=== PATIENT | male | born 2000 | race Caucasian/White ===

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

== ENCOUNTER 2022-07-21 11:41 | Inpatient (IN) ==
--- NOTE | 2022-07-21 12:25 | Emergency Department Note ---
Impression & Plan Suicidal ideation, Mood disorder ED Provider Note NAME: WIN JOHANSEN AGE: 22 SEX: M : 2000 ARRIVES VIA: Walk-In INFORMANT: Patient ED PROVIDER(S): Rasheed Aaron DO CHIEF COMPLAINT: SI HPI: Patient is a 22-year-old male with past medical history of depression, and anxiety who presents to the ER for suicidal ideations. He notes he does not have a plan but admits that he has been thinking about walking into traffic since October. Since October these thoughts have been coming, and going depending on his depression. They have gotten significantly worse recently. He has also recently thought about hanging himself. He feels unsafe at home and consequently wants to come in. He does not want to be admitted but feels as though he needs to be admitted. Denies any headache or change in vision. No chest pain or shortness of breath. No nausea, vomiting, or diarrhea. No dysuria, urgency, or frequency. No other exacerbating or remitting factors. He does take Wellbutrin and Zoloft. He has not missed any doses of his Zoloft and has intermittently missed some doses of his Wellbutrin. PAST MEDICAL HISTORY:See Below PAST SURGICAL HISTORY:See Below FAMILY HISTORY:See Below SOCIAL HISTORY:See Below HOME MEDICATIONS:See Below ALLERGIES:See Below VITALS:See Below PHYSICAL EXAMINATION: GENERAL: Sitting up in bed, alert, well appearing, well nourished, no distress, non-toxic EYE EXAM: normal conjunctiva. OROPHARYNX: no exudate, no erythema, lips, buccal mucosa, and tongue normal and mucous membranes are moist NECK: supple, no nuchal rigidity, no adenopathy, non-tender LUNGS: Clear to auscultation. Normal chest wall mechanics HEART: no murmurs, S1 normal and S2 normal ABDOMEN: abdomen soft, non-tender, normo-active bowel sounds, no masses, no rebound or guarding. BACK: Back is symmetrical on inspection and there is no deformity, no midline tenderness, no CVA tenderness. SKIN: no rashes and no bruising UPPER EXTREMITIES: upper extremities are grossly normal. LOWER EXTREMITIES: No pitting edema. NEURO EXAM: Normal sensorium, cranial nerves II-XII grossly intact, normal speech, no gross weakness of arms, no gross weakness of legs. PSYCH: To suicidal thoughts and notes that his #1 way of killing himself would be walking on from traffic and #2 would be hanging himself. MEDICAL DECISION MAKING: Patient is a 22-year-old male who presents ER for suicidal ideations and has been thinking about hanging himself or walking out in the traffic. He notes his #1 plan will be to walk into traffic. He is feeling helpless. He has put some thought and killing himself. Labs show no significant leukocytosis or anemia. BMP, LFTs bilirubin was unremarkable. TSH at 6. UA was clean. Tox was positive for MDMA. COVID-negative. Alcohol negative. Patient was discussed with her psychiatric care managers. Referral made to 3 S. Patient was accepted on a 2 oh 1-3 S. ED observation The patient was placed in observation status at 1150. Evaluation for medical stability. During the time in observation, the patient was frequently reassessed and received blood work and evaluation by her psychiatric care managers. On Final reassessment the patient blood work was unremarkable and the patient will be excepted at this time to 3 S. A total observation time of 4 hours and 10 minutes patient was excepted around 3:50 PM Triage Nursing notes reviewed. Limited review of prior medical records performed Vital Signs: reviewed and remarkable for HTN Differential diagnosis: Mood disorder, infection, hypoglycemia, electrolyte abnormalities, cardiac sources, intracerebral event, toxicologic, trauma, neurologic, as well as other pathologies. ER treatment provided: See below Diagnostics interpreted by me include EKG and cardiac monitoring as listed below: -Laboratory studies:Interpreted by me as stated above in MDM and shown below. Imaging studies: Xrays: As interpreted by me:none CTs show: none Consultation(s): As described in MDM Procedures:none Critical Care: None Past Med/Surg History Social History Smoking Status: Never smoker Feels Safe at Home: Yes Gender Identity: Male Allergies Allergies Allergy/AdvReac Type Severity Reaction Status Date / Time Penicillins Allergy Unknown . Unverified 11/03/14 00:23 Home Meds Home Medications Medication Instructions Recorded Confirmed Albuterol (Ventolin) See Rx Instructions .Route 11/10/08 07/21/22 .COMPLEX PRN SOB/Wheezing ##0 bupropion HCl 150 mg 24 hr tablet, 150 mg PO DAILY 07/21/22 07/21/22 extended release (Wellbutrin XL) sertraline 100 mg tablet (Zoloft) 150 mg HS 07/21/22 07/21/22 Results & Data (ED) Vital Signs Vital Signs - 24 hr 07/21/22 11:45 07/21/22 15:15 Temperature 36.7 C 36.7 C Temperature Source Temporal Artery Scan Oral Pulse Rate 94 H Pulse Rate [Radial] 83 Pulse Rhythm [Radial] Regular Pulse Strength [Radial] Normal Respiratory Rate 18 17 Respiratory Effort / Characteristics Non-Labored Non-Labored Spontaneous Respiratory Depth Normal Normal Respiratory Pattern Regular Blood Pressure 152/118 H Blood Pressure [Left Arm] 162/83 H Blood Pressure Mean 129 Blood Pressure Mean [Left Arm] 109 Blood Pressure Position Sitting Blood Pressure Position [Left Arm] Sitting Pulse Oximetry 97 99 Oxygen Delivery Method Room Air Room Air Sepsis Recent Fever Within 48 Hours No Sepsis New/Unexplained Change in Mental Status No Sepsis Action Taken by Nursing No Action Required Laboratory Data 07/21/22 12:06 07/21/22 12:06 Lab Results 07/21/22 07/21/22 07/21/22 Range/Units 12:06 12:06 12:06 WBC 9.01 (4.8-10.8) K/ul RBC 5.25 (4.70-6.10) M/uL Hgb 16.5 (14.0-18.0) g/dl Hct 44.1 (42.0-52.0) % MCV 84.0 (80.0-100.0) fL MCH 31.4 (25.0-34.0) pg MCHC 37.4 H (32.0-36.0) g/dL RDW Std Deviation 34.5 L (36.4-46.3) fL RDW Coeff of Jose Francisco 11.4 L (11.5-14.5) % Plt Count 208 (130-400) K/uL MPV 9.3 L (9.4-12.4) fL Immature Gran % (Auto) 0.3 % Neut % (Auto) 72.5 % Lymph % (Auto) 19.4 % [place] % (Auto) 6.4 % Eos % (Auto) 0.6 % Baso % (Auto) 0.8 % Neut # (Auto) 6.53 H (1.40-6.50) K/uL Lymph # (Auto) 1.75 (1.2-3.4) K/uL [place] # (Auto) 0.58 (0.11-0.59) K/uL Eos # (Auto) 0.05 (0-0.50) K/uL Baso # (Auto) 0.07 (0-0.2) K/uL Immature Gran # (Auto) 0.03 (0.01-0.20) K/uL Sodium 139 (136-145) mmol/L Potassium 3.7 (3.5-5.1) mmol/L Chloride 105 (98-107) mmol/L Carbon Dioxide 24 (21-32) mmol/L Anion Gap 10 (3-11) BUN 16 (6-23) mg/dl Creatinine 1.00 (0.6-1.4) mg/dl Est Cr Clr Drug Dosing 128.7 ml/min Est GFR ( Amer) 121.6 ml/min Est GFR (Non-Af Amer) 104.9 ml/min BUN/Creatinine Ratio 16.0 (10-20) Glucose 90 (70-99(Fasting)) mg/dl Calcium 10.0 (8.6-10.3) mg/dl Total Bilirubin 0.6 (0.2-1.0) mg/dl AST 18 (13-39) U/L ALT 13 (7-52) U/L Alkaline Phosphatase 70 (34-104) U/L Total Protein 8.3 (6.0-8.3) gm/dl Albumin 4.9 (3.4-5.0) gm/dl Globulin 3.4 (2.5-4.0) gm/dl Albumin/Globulin Ratio 1.4 (0.9-2) TSH 6.201 H (0.300-4.500) uIu/ml Free T4 0.72 (0.61-1.60) ng/dl Urine Color Urine Appearance (Clear) Urine pH (4.5-7.5) Ur Specific [place] (1.000-1.030) Urine Protein (Negative) Urine Glucose (UA) (Negative) Urine Ketones (Negative) Urine Blood (Negative) Urine Nitrite (Negative) Urine Bilirubin (Negative) Urine Urobilinogen (Negative) Ur Leukocyte Esterase (Negative) Salicylates (3.0-30) mg/dl Urine Opiates Screen (Neg) Ur Methadone, Qual (Neg) Acetaminophen (10-30) ug/ml Urine Barbiturates (Neg) Ur Phencyclidine (PCP) (Neg) U Amphetamin/Meth Scrn (Neg) MDMA (Ecstasy) Screen (Neg) U Benzodiazepines Scrn (Neg) Ur Cocaine Metabolite (Neg) U Marijuana (THC) Screen (Neg) Ethyl Alcohol mg/dL (<10.0) mg/dl SARS-CoV-2, RNA, NAAT (NEGATIVE) 07/21/22 07/21/22 07/21/22 Range/Units 12:06 12:06 12:06 WBC (4.8-10.8) K/ul RBC (4.70-6.10) M/uL Hgb (14.0-18.0) g/dl Hct (42.0-52.0) % MCV (80.0-100.0) fL MCH (25.0-34.0) pg MCHC (32.0-36.0) g/dL RDW Std Deviation (36.4-46.3) fL RDW Coeff of Jose Francisco (11.5-14.5) % Plt Count (130-400) K/uL MPV (9.4-12.4) fL Immature Gran % (Auto) % Neut % (Auto) % Lymph % (Auto) % [place] % (Auto) % Eos % (Auto) % Baso % (Auto) % Neut # (Auto) (1.40-6.50) K/uL Lymph # (Auto) (1.2-3.4) K/uL [place] # (Auto) (0.11-0.59) K/uL Eos # (Auto) (0-0.50) K/uL Baso # (Auto) (0-0.2) K/uL Immature Gran # (Auto) (0.01-0.20) K/uL Sodium (136-145) mmol/L Potassium (3.5-5.1) mmol/L Chloride (98-107) mmol/L Carbon Dioxide (21-32) mmol/L Anion Gap (3-11) BUN (6-23) mg/dl Creatinine (0.6-1.4) mg/dl Est Cr Clr Drug Dosing ml/min Est GFR ( Amer) ml/min Est GFR (Non-Af Amer) ml/min BUN/Creatinine Ratio (10-20) Glucose (70-99(Fasting)) mg/dl Calcium (8.6-10.3) mg/dl Total Bilirubin (0.2-1.0) mg/dl AST (13-39) U/L ALT (7-52) U/L Alkaline Phosphatase (34-104) U/L Total Protein (6.0-8.3) gm/dl Albumin (3.4-5.0) gm/dl Globulin (2.5-4.0) gm/dl Albumin/Globulin Ratio (0.9-2) TSH (0.300-4.500) uIu/ml Free T4 (0.61-1.60) ng/dl Urine Color Urine Appearance (Clear) Urine pH (4.5-7.5) Ur Specific [place] (1.000-1.030) Urine Protein (Negative) Urine Glucose (UA) (Negative) Urine Ketones (Negative) Urine Blood (Negative) Urine Nitrite (Negative) Urine Bilirubin (Negative) Urine Urobilinogen (Negative) Ur Leukocyte Esterase (Negative) Salicylates < 3.0 L (3.0-30) mg/dl Urine Opiates Screen (Neg) Ur Methadone, Qual (Neg) Acetaminophen < 3 L (10-30) ug/ml Urine Barbiturates (Neg) Ur Phencyclidine (PCP) (Neg) U Amphetamin/Meth Scrn (Neg) MDMA (Ecstasy) Screen (Neg) U Benzodiazepines Scrn (Neg) Ur Cocaine Metabolite (Neg) U Marijuana (THC) Screen (Neg) Ethyl Alcohol mg/dL < 10.0 (<10.0) mg/dl SARS-CoV-2, RNA, NAAT NEGATIVE (NEGATIVE) 07/21/22 07/21/22 Range/Units 14:02 14:02 WBC (4.8-10.8) K/ul RBC (4.70-6.10) M/uL Hgb (14.0-18.0) g/dl Hct (42.0-52.0) % MCV (80.0-100.0) fL MCH (25.0-34.0) pg MCHC (32.0-36.0) g/dL RDW Std Deviation (36.4-46.3) fL RDW Coeff of Jose Francisco (11.5-14.5) % Plt Count (130-400) K/uL MPV (9.4-12.4) fL Immature Gran % (Auto) % Neut % (Auto) % Lymph % (Auto) % [place] % (Auto) % Eos % (Auto) % Baso % (Auto) % Neut # (Auto) (1.40-6.50) K/uL Lymph # (Auto) (1.2-3.4) K/uL [place] # (Auto) (0.11-0.59) K/uL Eos # (Auto) (0-0.50) K/uL Baso # (Auto) (0-0.2) K/uL Immature Gran # (Auto) (0.01-0.20) K/uL Sodium (136-145) mmol/L Potassium (3.5-5.1) mmol/L Chloride (98-107) mmol/L Carbon Dioxide (21-32) mmol/L Anion Gap (3-11) BUN (6-23) mg/dl Creatinine (0.6-1.4) mg/dl Est Cr Clr Drug Dosing ml/min Est GFR ( Amer) ml/min Est GFR (Non-Af Amer) ml/min BUN/Creatinine Ratio (10-20) Glucose (70-99(Fasting)) mg/dl Calcium (8.6-10.3) mg/dl Total Bilirubin (0.2-1.0) mg/dl AST (13-39) U/L ALT (7-52) U/L Alkaline Phosphatase (34-104) U/L Total Protein (6.0-8.3) gm/dl Albumin (3.4-5.0) gm/dl Globulin (2.5-4.0) gm/dl Albumin/Globulin Ratio (0.9-2) TSH (0.300-4.500) uIu/ml Free T4 (0.61-1.60) ng/dl Urine Color Yellow Urine Appearance Clear (Clear) Urine pH 8.0 H (4.5-7.5) Ur Specific [place] 1.023 (1.000-1.030) Urine Protein Negative (Negative) Urine Glucose (UA) Negative (Negative) Urine Ketones Trace H (Negative) Urine Blood Negative (Negative) Urine Nitrite Negative (Negative) Urine Bilirubin Negative (Negative) Urine Urobilinogen Negative (Negative) Ur Leukocyte Esterase Negative (Negative) Salicylates (3.0-30) mg/dl Urine Opiates Screen Neg (Neg) Ur Methadone, Qual Neg (Neg) Acetaminophen (10-30) ug/ml Urine Barbiturates Neg (Neg) Ur Phencyclidine (PCP) Neg (Neg) U Amphetamin/Meth Scrn Neg (Neg) MDMA (Ecstasy) Screen Pos H (Neg) U Benzodiazepines Scrn Neg (Neg) Ur Cocaine Metabolite Neg (Neg) U Marijuana (THC) Screen Neg (Neg) Ethyl Alcohol mg/dL (<10.0) mg/dl SARS-CoV-2, RNA, NAAT (NEGATIVE) Discharge Plan Visit Data Chief Complaint: Mental Health Evaluation Stated Complaint: [facility] ED Provider: Rasheed Aaron Discharge Problem: Suicidal ideation, Mood disorder Forms Stand Alone Forms: My [facility], Suicide Prevention Resources Prescriptions Prescriptions: No Action Albuterol (Ventolin) inhaler See Rx Instructions .ROUTE .COMPLEX PRN (Reason: SOB/Wheezing) Qty: 0 Rx Instructions: 2 puff inhaled as needed sertraline [Zoloft] 100 mg tablet 150 mg HS bupropion HCl [Wellbutrin XL] 150 mg tablet extended release 24 hr 150 mg PO DAILY Referrals Referrals: Blaise Kent MD [Physician] -
[2022-07-21 12:46] LABS: Albumin Globulin Ratio 1.4 (0.9-2); Albumin Level 4.9 gm/dl (3.4-5.0); Bilirubin,Total 0.6 mg/dl (0.2-1.0); Creatinine Clr Calc Pharmacy 128.7 ml/min; Est GFR (African American) 121.6 ml/min; Est GFR (Non-African American) 104.9 ml/min; Globulin 3.4 gm/dl (2.5-4.0); Potassium 3.7 mmol/L (3.5-5.1); Total Protein 8.3 gm/dl (6.0-8.3)
[2022-07-21 12:49] LABS: Acetaminophen < 3 ug/ml (10-30); Salicylate < 3.0 mg/dl (3.0-30)
[2022-07-21 12:58] LABS: Basophils # (auto) 0.07 K/uL (0-0.2); Basophils % (auto) 0.8 %; Eosinophils # (auto) 0.05 K/uL (0-0.50); Eosinophils % (auto) 0.6 %; Hematocrit (blood only) 44.1 % (42.0-52.0); Hemoglobin 16.5 g/dl (14.0-18.0); Immature Granulocytes # (auto) 0.03 K/uL (0.01-0.20); Immature Granulocytes % (auto) 0.3 %; Lymphocytes # (auto) 1.75 K/uL (1.2-3.4); Lymphocytes % (auto) 19.4 %; Mean Corpuscular Hemoglobin 31.4 pg (25.0-34.0); Mean Corpuscular Hgb Conc 37.4 g/dL (32.0-36.0); Mean Platelet Volume 9.3 fL (9.4-12.4); Monocytes # (auto) 0.58 K/uL (0.11-0.59); Monocytes % (auto) 6.4 %; Neutrophils # (auto) 6.53 K/uL (1.40-6.50); Neutrophils % (auto) 72.5 %; Platelet Count 208 K/uL (130-400); RDW Coefficient of Variation 11.4 % (11.5-14.5); RDW Standard Deviation 34.5 fL (36.4-46.3); Red Blood Count 5.25 M/uL (4.70-6.10); White Blood Count 9.01 K/ul (4.8-10.8)
[2022-07-21 13:01] LABS: Thyroid Stimulating Hormone 6.201 uIu/ml (0.300-4.500)
[2022-07-21 14:18] LABS: T4 Free Thyroxine 0.72 ng/dl (0.61-1.60)
[2022-07-21 14:27] LABS: Appearance Urine Clear (Clear); Bilirubin Urine Negative (Negative); Blood Urine Negative (Negative); Color Urine Yellow; Glucose Urine UA Negative (Negative); Ketones Urine Trace (Negative); Leukocyte Esterase Urine Negative (Negative); Nitrite Urine Negative (Negative); Protein Urine Negative (Negative); Specific Gravity Urine 1.023 (1.000-1.030); Urobilinogen Urine Negative (Negative)
[2022-07-21 14:58] LABS: Amphetamines+Metham, Urine Neg (Neg); Barbiturates, Urine Neg (Neg); Benzodiazepine, Urine Neg (Neg); Cocaine, Urine Neg (Neg); MDMA (Ecstacy), Urine Pos (Neg); Methadone, Urine Neg (Neg); Opiate, Urine Neg (Neg); Phencyclidine, Urine Neg (Neg)
[2022-07-21] MEDS ORDERED: ACETAMINOPHEN 325 MG TAB PO PRN (15:57)
[2022-07-21] MEDS ORDERED: hydrOXYzine HCl 25 MG TAB PO PRN ×2 (15:57)
[2022-07-21] MEDS ORDERED: MAGNESIUM HYDROXIDE SUSP 30 ML UDC PO PRN (15:57)
[2022-07-21] MEDS ORDERED: BISMUTH SUBSALICYLATE LIQD 236 ML PO PRN (15:57)
[2022-07-21] MEDS ORDERED: ALUMINUM/MAGNESIUM SUSP 30 ML UDC PO PRN (15:57)
[2022-07-21] MEDS ORDERED: SODIUM CHLORIDE 0.65% NA SOLN 45 ML (OCEAN) PRN (15:57)
[2022-07-21] MEDS ORDERED: ALBUTEROL HFA 8 GM INHALER INH PRN (16:34)
[2022-07-21] MEDS: SERTRALINE HCL 50 MG TABLET PO SCH (21:05)
[2022-07-22] MEDS: buPROPion XL 150 MG TABCR PO SCH (09:00)
--- NOTE | 2022-07-22 12:25 | History & Physical ---
Date of Service July 22, 2022 Impression / Recommendations Impression 22 yo non-binary patient with a long hx of depression, worsening SI in the context of phase of life changes/perceived loss of support system. (1) Major depressive disorder, recurrent episode: (2) Hypothyroidism: TSH is >5, low normal free T4. compliance issues--will need repeat as outpatient Plan The patient was admitted to the [facility] on q15 min checks (behavioral with suicide precautions) for safety. The patient will participate in group, recreational, and milieu therapies and will be offered additional individual and family sessions as clinically appropriate. Risks/benefits/alternatives reviewed re: antidepressants for the treatment of depression and/or anxiety. The patient agreed to continue Zoloft with augmentation with Wellbutrin as planned by his outpatient psychiatrist. Summer will allow for more time in am so compliance will be less of an issue. No evidence of alcohol withdrawal, will monitor. 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 Chief Complaint "Everything seems to be happening all at once." History of Present Illness Ed reports they have been depressed and on Zoloft since age 13. They report a conflictual relationship with their parents and rely on their roommates for support. Their roommates are preparing to move to [facility] and the patient's lease will be ending soon. 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 They admit to an increase in alcohol use to cope in past week which also coincides with a worsening of chronic intermittent SI. They typically drank a few drinks a week, this week they have drank every day up to 10 beers. They deny any history of withdrawal. Motivation and focus have been decreased for at least a month; their outpatient provider started Wellbutrin a few weeks ago but they haven't taken it with any consistency given that it's hard for them to get up for work in time and forget. Suicidal thoughts have included hanging self or walking into traffic. Past Psychiatric History Previous Psych History: outpatient therapy and counseling since age 13 or 14. Current Psychiatric Diagnosis: MDD Outpatient Services: [facility]--Dr. Wellington, james Tapia Previous Psych Admissions: none Do You Have Access To A Gun?: No History of Previous Suicide Attempt: No Past Medication Trials: Zoloft only Past Head Trauma/Neuro History History of Concussion/Seizure: No Allergies Allergy/AdvReac Type Severity Reaction Status Date / Time Penicillins Allergy Unknown . Unverified 11/03/14 00:23 Home Medications Medication Instructions Recorded Confirmed Type Albuterol (Ventolin) See Rx Instructions .Route 11/10/08 07/21/22 History .COMPLEX PRN SOB/Wheezing ##0 bupropion HCl 150 mg 24 hr tablet, 150 mg PO DAILY 07/21/22 07/21/22 History extended release (Wellbutrin XL) sertraline 100 mg tablet (Zoloft) 150 mg HS 07/21/22 07/21/22 History Family History Family History of: Depression, Anxiety, Alcoholism/Drug Abuse and Bipolar Family Mental Health History Comment: depression/anxiety- maternal family "fixed with stacy" thinks great grandmother completed suicide dad has 'sever' anger issues when younger Alcohol History Hx of Alcohol Use Over the Past 12 Months: Yes (beer, 4-5 a few times a week, last day 07/20) AUDIT Total Score: 8 Smoking Use Have You Smoked or Used Tobacco Products in the Last 30 Days: No Smoking Status: Never smoker Substance History Hx of Prescription Med Misuse Over the Past 12 Months: No Hx of Over the Counter Med Misuse Over the Past 12 Months: No Hx of Inhalent Misuse Over the Past 12 Months: No Hx of Organic Substance Use Over the Past 12 Months: Yes (ocassionally) Hx of Illegal Substances/Street Drug Use Over Past 12 Months: No Problems as a Result of Past Substance Use: None Identified Personal History Living Arrangements: Apartment Highest Grade Completed: College Highest Grade Completed Comment: [employer] graduate (history and education) 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) Marital Status: Single Number Of Children: 0 Beliefs That Will Affect Care: None Current Legal Problems: No Psychological Trauma History Comment: felt needs weren't met as child, a few occasions of shoving, expressed emotion from father, parents had "fringe" ideology Patient History Medical History (Updated 07/22/22 @ 12:36 by Liv Escamilla MD) Asthma (05/20/12) GERD (gastroesophageal reflux disease) Hypothyroidism Surgical History (Updated 07/22/22 @ 12:35 by Liv Escamilla MD) H/O hernia repair (05/20/12) Social History Smoking Status: Never smoker Preferred Language: Sierra Leonean Communication Ability: Effective Director Operating Required: No Beliefs That Will Affect Care: None Feels Safe at Home: Yes Gender Identity: Genderqueer Assistive Devices: Glasses Review of Systems Review of Systems: All systems reviewed & are unremarkable except as noted in HPI & below Physical Exam Psychiatric: Orientation: alert and oriented x 3 Apperance: appropriately dressed and appropriately groomed Eye Contact: good eye contact Motor Behavior: no abnormal motor movements Speech: normal rate/rhythm/volume of speech Affect: + depressed affect Mood: + depressed mood Thought Process: goal directed thought process Thought Content: reality based without delusions Suicidal Thoughts: denies suicidal intent; + reports suicidal thoughts and + reports suicidal plan (walk in traffic) Homicidal Thoughts: denies homicidal thoughts Hallucinations: no auditory hallucinations and no visual hallucinations Cognition: attention grossly intact and language grossly intact Estimated Intelligence: consistent with education level Insight: + limited insight Judgment: + limited judgement Vital Signs (Past 24 Hours): Last Vital Signs Temp 36.6 C 07/22/22 06:36 Pulse 91 H 07/22/22 06:36 Resp 20 07/22/22 06:36 BP 99/61 L 07/22/22 06:37 Pulse Ox 96 07/22/22 06:36 O2 Del Method Room Air 07/22/22 06:36 Exam Statement: A physical exam was performed in the ED by Dr. Aaron for the purposes of medical clearance. I accept that physical as correct and adequate for the purposes of the inpatient physical exam. Results & Data ([facility]) Laboratory Results Laboratory Results - last 24 hr 07/21/22 07/21/22 07/21/22 12:06 12:06 12:06 WBC 9.01 RBC 5.25 Hgb 16.5 Hct 44.1 MCV 84.0 MCH 31.4 MCHC 37.4 H RDW Std Deviation 34.5 L RDW Coeff of Jose Francisco 11.4 L Plt Count 208 MPV 9.3 L Immature Gran % (Auto) 0.3 Neut % (Auto) 72.5 Lymph % (Auto) 19.4 [place] % (Auto) 6.4 Eos % (Auto) 0.6 Baso % (Auto) 0.8 Neut # (Auto) 6.53 H Lymph # (Auto) 1.75 [place] # (Auto) 0.58 Eos # (Auto) 0.05 Baso # (Auto) 0.07 Immature Gran # (Auto) 0.03 Sodium 139 Potassium 3.7 Chloride 105 Carbon Dioxide 24 Anion Gap 10 BUN 16 Creatinine 1.00 Est Cr Clr Drug Dosing 128.7 Est GFR ( Amer) 121.6 Est GFR (Non-Af Amer) 104.9 BUN/Creatinine Ratio 16.0 Glucose 90 Calcium 10.0 Total Bilirubin 0.6 AST 18 ALT 13 Alkaline Phosphatase 70 Total Protein 8.3 Albumin 4.9 Globulin 3.4 Albumin/Globulin Ratio 1.4 TSH 6.201 H Free T4 0.72 Urine Color Urine Appearance Urine pH Ur Specific [place] Urine Protein Urine Glucose (UA) Urine Ketones Urine Blood Urine Nitrite Urine Bilirubin Urine Urobilinogen Ur Leukocyte Esterase Salicylates Urine Opiates Screen Ur Methadone, Qual Acetaminophen Urine Barbiturates Ur Phencyclidine (PCP) U Amphetamin/Meth Scrn Urine MDEA MDMA (Ecstasy) Screen MDMA Urine MDMA U Benzodiazepines Scrn Ur Cocaine Metabolite U Marijuana (THC) Screen Ethyl Alcohol mg/dL SARS-CoV-2, RNA, NAAT 07/21/22 07/21/22 07/21/22 12:06 12:06 12:06 WBC RBC Hgb Hct MCV MCH MCHC RDW Std Deviation RDW Coeff of Jose Francisco Plt Count MPV Immature Gran % (Auto) Neut % (Auto) Lymph % (Auto) [place] % (Auto) Eos % (Auto) Baso % (Auto) Neut # (Auto) Lymph # (Auto) [place] # (Auto) Eos # (Auto) Baso # (Auto) Immature Gran # (Auto) Sodium Potassium Chloride Carbon Dioxide Anion Gap BUN Creatinine Est Cr Clr Drug Dosing Est GFR ( Amer) Est GFR (Non-Af Amer) BUN/Creatinine Ratio Glucose Calcium Total Bilirubin AST ALT Alkaline Phosphatase Total Protein Albumin Globulin Albumin/Globulin Ratio TSH Free T4 Urine Color Urine Appearance Urine pH Ur Specific [place] Urine Protein Urine Glucose (UA) Urine Ketones Urine Blood Urine Nitrite Urine Bilirubin Urine Urobilinogen Ur Leukocyte Esterase Salicylates < 3.0 L Urine Opiates Screen Ur Methadone, Qual Acetaminophen < 3 L Urine Barbiturates Ur Phencyclidine (PCP) U Amphetamin/Meth Scrn Urine MDEA MDMA (Ecstasy) Screen MDMA Urine MDMA U Benzodiazepines Scrn Ur Cocaine Metabolite U Marijuana (THC) Screen Ethyl Alcohol mg/dL < 10.0 SARS-CoV-2, RNA, NAAT NEGATIVE 07/21/22 07/21/22 07/21/22 14:02 14:02 14:02 WBC RBC Hgb Hct MCV MCH MCHC RDW Std Deviation RDW Coeff of Jose Francisco Plt Count MPV Immature Gran % (Auto) Neut % (Auto) Lymph % (Auto) [place] % (Auto) Eos % (Auto) Baso % (Auto) Neut # (Auto) Lymph # (Auto) [place] # (Auto) Eos # (Auto) Baso # (Auto) Immature Gran # (Auto) Sodium Potassium Chloride Carbon Dioxide Anion Gap BUN Creatinine Est Cr Clr Drug Dosing Est GFR ( Amer) Est GFR (Non-Af Amer) BUN/Creatinine Ratio Glucose Calcium Total Bilirubin AST ALT Alkaline Phosphatase Total Protein Albumin Globulin Albumin/Globulin Ratio TSH Free T4 Urine Color Yellow Urine Appearance Clear Urine pH 8.0 H Ur Specific [place] 1.023 Urine Protein Negative Urine Glucose (UA) Negative Urine Ketones Trace H Urine Blood Negative Urine Nitrite Negative Urine Bilirubin Negative Urine Urobilinogen Negative Ur Leukocyte Esterase Negative Salicylates Urine Opiates Screen Neg Ur Methadone, Qual Neg Acetaminophen Urine Barbiturates Neg Ur Phencyclidine (PCP) Neg U Amphetamin/Meth Scrn Neg Urine MDEA Pending MDMA (Ecstasy) Screen Pos H MDMA Pending Urine MDMA Pending U Benzodiazepines Scrn Neg Ur Cocaine Metabolite Neg U Marijuana (THC) Screen Neg Ethyl Alcohol mg/dL SARS-CoV-2, RNA, NAAT Current Inpatient Medications Current Inpatient Medications: Current Inpatient Medications Acetaminophen (Acetaminophen 325 Mg Tab) 650 mg PO Q4H PRN PRN Reason: Headache or Minor Fever Stop: 08/20/22 15:56 Al Hydrox/Mg Hydrox/Simethicone (Aluminum/Magnesium Susp 30 Ml Udc) 30 ml PO Q4H PRN PRN Reason: GI Upset Stop: 08/20/22 15:56 Albuterol (Albuterol Hfa 8 Gm Inhaler) 2 puffs INH Q4R PRN PRN Reason: SOB/Wheezing Stop: 08/20/22 16:33 Bismuth Subsalicylate (Bismuth Subsalicylate Liqd 236 Ml) 15 ml PO PRN PRN PRN Reason: Loose Stool Stop: 08/20/22 15:56 Bupropion HCl (Bupropion Xl 150 Mg Tabcr) 150 mg PO DAILY JESICA Stop: 08/21/22 08:59 Last Admin: 07/22/22 09:00 Dose: 150 mg Hydroxyzine HCl (Hydroxyzine Hcl 25 Mg Tab) 50 mg PO HSZ PRN PRN Reason: Insomnia Stop: 08/20/22 15:56 Hydroxyzine HCl (Hydroxyzine Hcl 25 Mg Tab) 25 mg PO Q4H PRN PRN Reason: Anxiety Stop: 08/20/22 15:56 Magnesium Hydroxide (Magnesium Hydroxide Susp 30 Ml Udc) 30 ml PO DAILY PRN PRN Reason: Constipation Stop: 08/20/22 15:56 Sertraline HCl (Sertraline Hcl 50 Mg Tablet) 150 mg PO HS JESICA Stop: 08/20/22 21:59 Last Admin: 07/21/22 21:05 Dose: 150 mg Sodium Chloride (Sodium Chloride 0.65% Na Soln 45 Ml (Hawkins)) 1 - 2 sprays NA PRN PRN PRN Reason: Nasal Dryness/Congestion Stop: 08/20/22 15:56
[2022-07-22] MEDS: SERTRALINE HCL 50 MG TABLET PO SCH (20:55)
[2022-07-23] MEDS: buPROPion XL 150 MG TABCR PO SCH (09:14)
--- NOTE | 2022-07-23 13:16 | Psychiatric Progress Note ---
Date of Service July 23, 2022 Impression / Recommendations Impression 22 yo non-binary patient with a long hx of depression, worsening SI in the context of phase of life changes/perceived loss of support system. 07/23/22: ambivalent relationship with family and still rather limited in social supports. (1) Major depressive disorder, recurrent episode: (2) Hypothyroidism: TSH is >5, low normal free T4. compliance issues--will need repeat as outpatient Plan 07/23/22: needs support person meeting, continue current meds and tx plan 07/22/22: The patient was admitted to the [facility] ([facility]) on q15 min checks (behavioral with suicide precautions) for safety. The patient will participate in group, recreational, and milieu therapies and will be offered additional individual and family sessions as clinically appropriate. Risks/benefits/alternatives reviewed re: antidepressants for the treatment of depression and/or anxiety. The patient agreed to continue Zoloft with augmentation with Wellbutrin as planned by his outpatient psychiatrist. Summer will allow for more time in am so compliance will be less of an issue. No evidence of alcohol withdrawal, will monitor. 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 Chief Complaint "I'm not ready yet, but feel like most of what I need to work on needs to happen at home". Review of Systems Sleep Information Total Hours of Sleep: 7.5 Meal Information Percent Meal Consumed - Breakfast: 100 Percent Meal Consumed - Lunch: 100 Percent Meal Consumed - Dinner: 100 Subjective Subjective Patient was seen & assessed and interval progress reviewed with treatment team. Patient's family visited unexpectedly last night after they had forwarded a letter via a friend that they would not be attending sister's graduation as hospitalized. Reviewed how they present a false self to appease parents and how this "conflict avoidance" carries over into a variety of other relationships. No med concerns. Physical Exam Psychiatric Orientation: alert and oriented x 3 Apperance: appropriately dressed and appropriately groomed Eye Contact: good eye contact Motor Behavior: no abnormal motor movements Speech: normal rate/rhythm/volume of speech Affect: + depressed affect Mood: + depressed mood Thought Process: goal directed thought process Thought Content: reality based without delusions Suicidal Thoughts: denies suicidal plan (on unit) and denies suicidal intent; + reports suicidal thoughts (intermittent) Homicidal Thoughts: denies homicidal thoughts Hallucinations: no auditory hallucinations and no visual hallucinations Cognition: attention grossly intact and language grossly intact Estimated Intelligence: consistent with education level Insight: + fair insight Vital Signs (Past 24 Hours) Last Vital Signs Temp 36.6 C 07/23/22 06:46 Pulse 77 07/23/22 06:47 Resp 16 07/23/22 06:46 BP 133/82 07/23/22 06:47 Pulse Ox 96 07/22/22 06:36 O2 Del Method Room Air 07/22/22 06:36 Results & Data ([facility]) Current Inpatient Medications Current Inpatient Medications: Current Inpatient Medications Acetaminophen (Acetaminophen 325 Mg Tab) 650 mg PO Q4H PRN PRN Reason: Headache or Minor Fever Stop: 08/20/22 15:56 Al Hydrox/Mg Hydrox/Simethicone (Aluminum/Magnesium Susp 30 Ml Udc) 30 ml PO Q4H PRN PRN Reason: GI Upset Stop: 08/20/22 15:56 Albuterol (Albuterol Hfa 8 Gm Inhaler) 2 puffs INH Q4R PRN PRN Reason: SOB/Wheezing Stop: 08/20/22 16:33 Bismuth Subsalicylate (Bismuth Subsalicylate Liqd 236 Ml) 15 ml PO PRN PRN PRN Reason: Loose Stool Stop: 08/20/22 15:56 Bupropion HCl (Bupropion Xl 150 Mg Tabcr) 150 mg PO DAILY JESICA Stop: 08/21/22 08:59 Last Admin: 07/23/22 09:14 Dose: 150 mg Hydroxyzine HCl (Hydroxyzine Hcl 25 Mg Tab) 50 mg PO HSZ PRN PRN Reason: Insomnia Stop: 08/20/22 15:56 Hydroxyzine HCl (Hydroxyzine Hcl 25 Mg Tab) 25 mg PO Q4H PRN PRN Reason: Anxiety Stop: 08/20/22 15:56 Magnesium Hydroxide (Magnesium Hydroxide Susp 30 Ml Udc) 30 ml PO DAILY PRN PRN Reason: Constipation Stop: 08/20/22 15:56 Sertraline HCl (Sertraline Hcl 50 Mg Tablet) 150 mg PO HS JESICA Stop: 08/20/22 21:59 Last Admin: 07/22/22 20:55 Dose: 150 mg Sodium Chloride (Sodium Chloride 0.65% Na Soln 45 Ml (Meade)) 1 - 2 sprays NA PRN PRN PRN Reason: Nasal Dryness/Congestion Stop: 08/20/22 15:56 Mental Health & Subst Abuse Tx Psychiatrist Name of Psychiatrist: Iqra Griggs-Dr. [place] Psychiatrist's Date Of Appointment With Psychiatric Provider: 07/27/22 Psychiatric Appointment Comment: [address] [facility] [address], [place] [address] Therapist Name of Therapist: Iqra Tapia Therapist's Therapy Appointment Comment: [address] [facility], [place] [address] Post Discharge Appointments Primary Care Physician Name Of Family Doctor/PCP: Rian Santos Primary [facility] Time of Appointment with PCP: Please follow up as needed Provider Appointment Comment: [address] PUJA Santos Contact Information Discharge Discharge Address: [address] [place] [address]
[2022-07-23] MEDS: SERTRALINE HCL 50 MG TABLET PO SCH (21:23)
[2022-07-24] MEDS: buPROPion XL 150 MG TABCR PO SCH (09:20)
--- NOTE | 2022-07-24 10:53 | Discharge Summary ---
Date of Service July 24, 2022 History of Present Illness Ed reports they have been depressed and on Zoloft since age 13. They report a conflictual relationship with their parents and rely on their roommates for support. Their roommates are preparing to move to [facility] and the patient's lease will be ending soon. 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 They admit to an increase in alcohol use to cope in past week which also coincides with a worsening of chronic intermittent SI. They typically drank a few drinks a week, this week they have drank every day up to 10 beers. They deny any history of withdrawal. Motivation and focus have been decreased for at least a month; their outpatient provider started Wellbutrin a few weeks ago but they haven't taken it with any consistency given that it's hard for them to get up for work in time an d forget. Suicidal thoughts have included hanging self or walking into traffic. Physical Exam Psychiatric Orientation: alert and oriented x 3 Apperance: appropriately dressed and appropriately groomed Eye Contact: good eye contact Motor Behavior: no abnormal motor movements Speech: normal rate/rhythm/volume of speech Affect: + constricted affect Mood: + dysphoric mood Thought Process: goal directed thought process Thought Content: reality based without delusions Suicidal Thoughts: denies suicidal plan and denies suicidal intent; + reports suicidal thoughts (intermittent) Homicidal Thoughts: denies homicidal thoughts Hallucinations: no auditory hallucinations and no visual hallucinations Cognition: attention grossly intact and language grossly intact Estimated Intelligence: consistent with education level Insight: + fair insight Judgment: + fair judgement Vital Signs (Past 24 Hours) Last Vital Signs Temp 36.7 C 07/24/22 06:54 Pulse 80 07/24/22 06:54 Resp 16 07/24/22 06:54 BP 117/74 07/24/22 06:54 Pulse Ox 96 07/22/22 06:36 O2 Del Method Room Air 07/22/22 06:36 Principal Diagnosis Major Depressive Disorder, Recurrent, Severe, without Psychotic Features Psychiatric Data See daily stay summary. In short, safety was maintained and the patient was cooperative with care. Medication changes were limited to more-consistent use of [id number] meds and they tolerated this well. A family session was held and safety plan was completed prior to discharge. Day of Discharge Assessment Today the patient voices readiness for discharge. They note improvement in mood and deny thoughts to harm self or others. Thoughts remain organized and they are improved from admission. There is no evidence of psychosis. They agree to take mediations as prescribed and keep follow-up appointments. They are stable for discharge to outpatient level of care. Transition of Care Transition Of Care Record: was reviewed with the patient Advance Directives Advance Directives Information Provided: Yes Advance Directives: No Mental Health Advance Directive: No Advance Directives on File: No Living Will: No Power of Grated Cheese Maker: No Advance Directives Reason:: Declines as Mental Health Visit. 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 [employer] Total Time Total Time Spent: Greater Than 30 Minutes Total Time Includes: Examination of the patient, Discharge Planning, Medication Reconciliation and As well as (documentation) Discharge Data Lab Results 07/21/22 07/21/22 07/21/22 12:06 12:06 12:06 WBC 9.01 RBC 5.25 Hgb 16.5 Hct 44.1 MCV 84.0 MCH 31.4 MCHC 37.4 H RDW Std Deviation 34.5 L RDW Coeff of Jose Francisco 11.4 L Plt Count 208 MPV 9.3 L Immature Gran % (Auto) 0.3 Neut % (Auto) 72.5 Lymph % (Auto) 19.4 Barry % (Auto) 6.4 Eos % (Auto) 0.6 Baso % (Auto) 0.8 Neut # (Auto) 6.53 H Lymph # (Auto) 1.75 Barry # (Auto) 0.58 Eos # (Auto) 0.05 Baso # (Auto) 0.07 Immature Gran # (Auto) 0.03 Sodium 139 Potassium 3.7 Chloride 105 Carbon Dioxide 24 Anion Gap 10 BUN 16 Creatinine 1.00 Est Cr Clr Drug Dosing 128.7 Est GFR ( Amer) 121.6 Est GFR (Non-Af Amer) 104.9 BUN/Creatinine Ratio 16.0 Glucose 90 Calcium 10.0 Total Bilirubin 0.6 AST 18 ALT 13 Alkaline Phosphatase 70 Total Protein 8.3 Albumin 4.9 Globulin 3.4 Albumin/Globulin Ratio 1.4 TSH 6.201 H Free T4 0.72 Urine Color Urine Appearance Urine pH Ur Specific Sandy Urine Protein Urine Glucose (UA) Urine Ketones Urine Blood Urine Nitrite Urine Bilirubin Urine Urobilinogen Ur Leukocyte Esterase Salicylates Urine Opiates Screen Ur Methadone, Qual Acetaminophen Urine Barbiturates Ur Phencyclidine (PCP) U Amphetamin/Meth Scrn MDMA (Ecstasy) Screen U Benzodiazepines Scrn Ur Cocaine Metabolite U Marijuana (THC) Screen Ethyl Alcohol mg/dL SARS-CoV-2, RNA, NAAT 07/21/22 07/21/22 07/21/22 12:06 12:06 12:06 WBC RBC Hgb Hct MCV MCH MCHC RDW Std Deviation RDW Coeff of Jose Francisco Plt Count MPV Immature Gran % (Auto) Neut % (Auto) Lymph % (Auto) Barry % (Auto) Eos % (Auto) Baso % (Auto) Neut # (Auto) Lymph # (Auto) Barry # (Auto) Eos # (Auto) Baso # (Auto) Immature Gran # (Auto) Sodium Potassium Chloride Carbon Dioxide Anion Gap BUN Creatinine Est Cr Clr Drug Dosing Est GFR ( Amer) Est GFR (Non-Af Amer) BUN/Creatinine Ratio Glucose Calcium Total Bilirubin AST ALT Alkaline Phosphatase Total Protein Albumin Globulin Albumin/Globulin Ratio TSH Free T4 Urine Color Urine Appearance Urine pH Ur Specific Sandy Urine Protein Urine Glucose (UA) Urine Ketones Urine Blood Urine Nitrite Urine Bilirubin Urine Urobilinogen Ur Leukocyte Esterase Salicylates < 3.0 L Urine Opiates Screen Ur Methadone, Qual Acetaminophen < 3 L Urine Barbiturates Ur Phencyclidine (PCP) U Amphetamin/Meth Scrn MDMA (Ecstasy) Screen U Benzodiazepines Scrn Ur Cocaine Metabolite U Marijuana (THC) Screen Ethyl Alcohol mg/dL < 10.0 SARS-CoV-2, RNA, NAAT NEGATIVE 07/21/22 07/21/22 14:02 14:02 WBC RBC Hgb Hct MCV MCH MCHC RDW Std Deviation RDW Coeff of Jose Francisco Plt Count MPV Immature Gran % (Auto) Neut % (Auto) Lymph % (Auto) Barry % (Auto) Eos % (Auto) Baso % (Auto) Neut # (Auto) Lymph # (Auto) Barry # (Auto) Eos # (Auto) Baso # (Auto) Immature Gran # (Auto) Sodium Potassium Chloride Carbon Dioxide Anion Gap BUN Creatinine Est Cr Clr Drug Dosing Est GFR ( Amer) Est GFR (Non-Af Amer) BUN/Creatinine Ratio Glucose Calcium Total Bilirubin AST ALT Alkaline Phosphatase Total Protein Albumin Globulin Albumin/Globulin Ratio TSH Free T4 Urine Color Yellow Urine Appearance Clear Urine pH 8.0 H Ur Specific Sandy 1.023 Urine Protein Negative Urine Glucose (UA) Negative Urine Ketones Trace H Urine Blood Negative Urine Nitrite Negative Urine Bilirubin Negative Urine Urobilinogen Negative Ur Leukocyte Esterase Negative Salicylates Urine Opiates Screen Neg Ur Methadone, Qual Neg Acetaminophen Urine Barbiturates Neg Ur Phencyclidine (PCP) Neg U Amphetamin/Meth Scrn Neg MDMA (Ecstasy) Screen Pos H U Benzodiazepines Scrn Neg Ur Cocaine Metabolite Neg U Marijuana (THC) Screen Neg Ethyl Alcohol mg/dL SARS-CoV-2, RNA, NAAT Hospital Course (1) Major depressive disorder, recurrent episode: (2) Hypothyroidism: TSH is >5, low normal free T4. compliance issues--will need repeat as outpatient Plan 07/23/22: needs support person meeting, continue current meds and tx plan 07/22/22: The patient was admitted to the [facility] on q15 min checks (behavioral with suicide precautions) for safety. The patient will participate in group, recreational, and milieu therapies and will be offered additional individual and family sessions as clinically appropriate. Risks/benefits/alternatives reviewed re: antidepressants for the treatment of depression and/or anxiety. The patient agreed to continue Zoloft with augmentation with Wellbutrin as planned by his outpatient psychiatrist. Summer will allow for more time in am so compliance will be less of an issue. No evidence of alcohol withdrawal, will monitor. Mental Health & Subst Abuse Tx Psychiatrist Name of Psychiatrist: [facility]AS [facility]-Dr. [place] Psychiatrist's Date Of Appointment With Psychiatric Provider: 07/27/22 Time of Appointment with Psychiatrist: 4:00 PM Psychiatric Appointment Comment: [address], [place] [address] Therapist Name of Therapist: SolePowercarole M.dotFelix Tapia Therapist's Date of Therapist Appointment: 07/29/22 Time of Therapist Appointment: 10:00 AM Therapy Appointment Comment: [address], [place] [address] Post Discharge Appointments Primary Care Physician Name Of Family Doctor/PCP: Kimmarco [facility] Time of Appointment with PCP: Please follow up as needed Provider Appointment Comment: [address] PUJA Santos Contact Information Discharge Discharge Address: [address], [place] [address] Discharge Plan Discharge Items Patient Disposition: Home - Self-Care Reason For Visit: MDD Discharge Diagnosis: Major Depressive Disorder, Recurrent, Severe, without Psychotic Features Activity: Resume your previous activity Non-emergency contact: Primary Care Provider and Psychiatrist Call non-emergency contact if: you have any medication questions and your symptoms worsen Follow-up/Referrals: Sterling Benjamin MD [Primary Care Provider] - Diet: Regular Addtl Attending Provider Instructions: SPECIAL CARE INSTRUCTIONS: 1. Follow through with your scheduled aftercare appointments. If unable to keep an appointment, please call to reschedule. 2. Take your medication only as prescribed. Medication should not be changed or stopped without the approval of your doctor. In the event of worsening symptoms or concerns about side effects, contact your doctor immediately. 3. Utilize new healthy coping skills, anger management skills, and stress management skills learned during your hospitalization. Journal feelings and process them with a support person. Identify stressors or situations that may result in relapse, deterioration or inappropriate behaviors and develop a plan to deal with those issues. 4. If your coping skills are ineffective and you are in crisis, contact your outpatient providers for direction. If unable to reach your providers, please call the [facility] CRISIS LINE AT , go to the [facility] walk-in center at [address], [address], [place], or go to the closest Emergency Room. 5. Avoid alcohol and un-prescribed drugs. 6. You have been provided with the Mental Health Advance Directives Pamphlet for your review. 7. Your condition is stable for discharge to outpatient level of care, but recovery is an ongoing process. Ifthoughts to harm yourself or others return, follow the safety plan developed during your stay. Planning for a safe return home includes securing weapons. Our treatment team recommends weaponsbe removed from the home until your outpatient provider reassesses your progress. In rare cases where the items themselvescannot be removed, guns and ammunitionshould be secured separatelyand keys stored by a reliable personoutside of the home. If you were admitted on an involuntary commitment, the police or other legal authorities may be involved in this process. AFTERCARE APPOINTMENTS: * Please call your insurance company prior to your scheduled appointment to confirm your aftercare providers are covered. Take your insurance information to your appointments. WHO TO CALL AND WHEN: Medical Emergencies: For questions or emergencies related to your hospital stay, please contact the Inpatient Behavioral Health Unit at [phone]. A parcel post officer is on-call 13/09 for the Behavioral Health Unit for emergencies At any time you feel your situation is an emergency, you may also call 911 immediately. Pending Studies at Discharge: No Stand-Alone Forms: [facility] [employer], Smoking Cessation Medications and DC Order Prescriptions: Continued Albuterol (Ventolin) inhaler See Rx Instructions .ROUTE .COMPLEX PRN (Reason: SOB/Wheezing) Qty: 0 Rx Instructions: 2 puff inhaled as needed sertraline [Zoloft] 100 mg tablet 150 mg HS bupropion HCl [Wellbutrin XL] 150 mg tablet extended release 24 hr 150 mg PO DAILY Discharge Orders: Discharge Order (Routine); Ordered 07/24/22 Ordered By: Jason Florentino Admission Data Admit Date/Time: 07/21/22 16:19 Attending Provider: Liv Escamilla Admit Provider: Liv Escamilla Primary Care Provider: Sterling Benjamin I. Coding Level of Care Code 53227 D/C day mgmt > 30 min Diagnoses Major depressive disorder, recurrent episode F33.9 Hypothyroidism E03.9 Time Spent (min) 32
== END 2022-07-24 13:30 | disposition home or self-care (01) | DRG 885 ==
LOC: ED 11:41 → 3S 15:52